=== PATIENT | male | born 1950 | race African-American/Black ===

== ENCOUNTER 2020-02-20 07:40 | Emergency (ER) | payer MEDICARE, MEDICAID ==
[~2020-02-20] VITALS: Ht 177.8 cm; Wt 99.8 kg
--- NOTE | 2020-02-20 08:11 | Emergency Room Report ---
History of Present Illness General Chief Complaint: Pain Source: Patient Present Illness HPI Disclaimer: Please note that this report is being documented using [employer] technology. This can lead to erroneous entry secondary to incorrect interpretation by the dictating instrument. HPI: 69-year-old male with a history of gout and osteoarthritis presents for evaluation of joint pain and swelling. 2 to 3 days ago he began to notice swelling over the dorsum of the hands and tenderness as well as swelling and tenderness in the left knee and in the left foot over the MTP joint of the first toe. Denies trauma, fall, injury of any kind. Patient has a history of gout and was previously taking allopurinol but was taken off by his prior PMD as it was not preventing attacks. He states his diet has been poor lately but denies any alcohol use. Denies fever, chills, rash, skin breakdown. Reports this feels like prior gout attacks. PMH: Gout, hypertension, COPD PSH: Reviewed Allergies: Denied Social Hx: Denied Allergies: Coded Allergies: No Known Allergies (Unverified , 02/20/20) COVID-19 Screening Contact w/high risk pt: No Recent Travel to affected area: No Experienced COVID-19 symptoms?: No COVID-19 Testing performed ATTORNEY AT [employer]: No Nursing Documentation-PMH Past Medical History: No History, Except For Hx Hypertension: Yes Review of Systems All Other Systems: negative except mentioned in HPI Physical Exam Vital Signs Date Time Temp Pulse Resp B/P (MAP) Pulse Ox O2 Delivery O2 Flow Rate FiO2 02/20/20 07:49 99.0 87 16 183/98 (126) 98 Room Air General: Awake and alert, no acute distress HEENT: NC/AT. EOMI. Resp: Normal work of breathing Skin: Intact. No abrasions, laceration or rash over the exposed skin MSK: Normal tone and bulk. Moving all extremities. No obvious deformity. Very mild edema over the dorsum of the hands bilaterally and some tenderness over the MCP J's of the index and middle fingers bilaterally. No restriction to range of motion. No changes in strength. There is tenderness palpation over the MTPJ of the left great toe with mild surrounding erythema. Minimal edema. Tenderness palpation around the left knee without edema, erythema. Patient ambulates with a walker. Neuro: Awake and alert. Mentating appropriately Medical Decision Making Diagnostic Impression: Primary Impression: Gout Additional Impressions: Joint pain Renal insufficiency ER Course 69-year-old male history of gout and osteoarthritis presents for evaluation of joint pain and swelling of the past 2 days. Differential includes is not limited to acute arthritis attack, gouty attack, pseudogout, an inflammatory arthritis, reactive arthritis, tendinitis. Patient originally arrived hypertensive but improved without intervention. He took his amlodipine this morning and does not take diuretics according to patient. Labs were obtained to evaluate renal function which shows signs of renal insufficiency. Uric acid level is at the upper end of normal range. Patient states he was told there was a decline in his kidney function on previous hospitalizations. No prior records in our facility to compare. He also states his diet and water intake have been poor recently. Encouraged him to follow-up with his primary care doctor in a few days for reevaluation and retesting and drink plenty of water over the next few days. Patient be given a dose of colchicine as his creatinine clearance still greater than 30 but will avoid NSAIDs given his renal insufficiency. Will discharge with prednisone, analgesics and follow-up with PMD. Laboratory Tests Test 02/20/20 08:14 Sodium Level 141 MMOL/L (136-145) Potassium Level 4.4 MMOL/L (3.5-5.1) Chloride Level 105 MMOL/L (98-107) Carbon Dioxide Level 30 MMOL/L (21-32) Anion Gap 7 mmol/L (5-15) Blood Urea Nitrogen 35 mg/dL (7-18) H Creatinine 2.4 MG/DL (0.55-1.30) H Estimated Glomerular Filtration Rate 32.6 mL/min (>60) Glucose Level 149 MG/DL (74-106) H Uric Acid 7.0 MG/DL (2.6-7.2) Calcium Level 9.0 MG/DL (8.5-10.1) Last Vital Signs Date Time Temp Pulse Resp B/P (MAP) Pulse Ox O2 Delivery O2 Flow Rate FiO2 02/20/20 07:49 99.0 87 16 183/98 (126) 98 Room Air Disposition: HOME, SELF-CARE Condition: Stable Scripts Acetaminophen With Codeine (T#3) (TYLENOL #3 TAB*) Y Tab 1 TAB ORAL Q8H PRN for For Pain for 5 Days, #20 TAB Prov: Michael Avendano MD 02/20/20 Colchicine (Colchicine) 0.6 Mg Capsule 0.6 MG PO ONCE for 1 Day, #1 CAP Prov: Michael Avendano MD 02/20/20 Prednisone* (PREDNISONE*) 20 Mg Tablet 40 MG ORAL DAILY for 5 Days, #10 TAB Prov: Michael Avendano MD 02/20/20 Michael Avendano MD Feb 20, 2020 08:11
[2020-02-20 08:18] VITALS: BP 160/80
[2020-02-20] MEDS: HYDROcodone/Acetamin 7.5/325 tab ORAL ONE ×2 (08:31→08:37)
[2020-02-20 09:07] LABS: ANION GAP 7 mmol/L (5-15); BLOOD UREA NITROGEN 35 mg/dL (7-18); CARBON DIOXIDE 30 MMOL/L (21-32); CHLORIDE 105 MMOL/L (98-107); CREATININE 2.4 MG/DL (0.55-1.30); POTASSIUM 4.4 MMOL/L (3.5-5.1); SODIUM 141 MMOL/L (136-145)
[2020-02-20] MEDS ORDERED: PREDNISONE20 MG ORAL ×2 (09:22)
[2020-02-20] MEDS ORDERED: ACETAMINOPHEN-1 EAC1 ORAL (09:22)
[2020-02-20] MEDS ORDERED: COLCHICINE0.6 M1 PO ×2 (09:22)
[2020-02-20 09:37] VITALS: BP 150/78
== END 2020-02-20 09:40 | disposition home or self-care (01) ==
LOC: EMR 08:11
DX: M10.9 Gout, unspecified (principal); N28.9 Disorder of kidney and ureter, unspecified; R52 Pain, unspecified; I10 Essential (primary) hypertension; J44.9 Chronic obstructive pulmonary disease, unspecified
CPT/HCPCS: 36415; 80048; 84550; 99283; J7512

== ENCOUNTER 2020-03-02 22:32 | Inpatient (IN) | payer MEDICARE, MEDICAID ==
[~2020-03-02] VITALS: Ht 180.3 cm; Wt 84.8 kg
[~2020-03-02 22:32] MED LIST: ACETAMINOPHEN-1 EAC1 ORAL; COLCHICINE0.6 M1 PO; PREDNISONE20 MG ORAL
[2020-03-02 22:45] VITALS: BP 174/118
--- NOTE | 2020-03-02 23:06 | Emergency Room Report ---
History of Present Illness General Chief Complaint: Pain Source: Patient Present Illness HPI Disclaimer: Please note that this report is being documented using [employer] technology. This can lead to erroneous entry secondary to incorrect interpretation by the dictating instrument. HPI: 69-year-old male with a history of hypertension, gout and osteoarthritis presents for evaluation of joint pain and swelling. He was treated for gout exacerbation 2 weeks ago with prednisone and states his symptoms completely resolved. Few days ago they returned complaining of pain and mild swelling over the base of the left thumb and in the left foot. Most of his pain is at the base of the fourth and fifth toes on the left foot with mild ankle swelling but denies pain in the ankle specifically. Ambulates with a walker which is his baseline. Denies fever, chills, redness, skin breakdown, injury, fall or other complaints at this time. 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 EOMI. Resp: Normal work of breathing Skin: Intact. No abrasions, laceration or rash over the exposed skin MSK: Normal tone and bulk. Moving all extremities. There is tenderness at the base of the right thumb with mild edema but full range of motion. No obvious deformity. The left ankle and foot have 2+ pitting edema with tenderness over the base of the fourth and fifth toes without deformity. Able to bear weight. No tenderness over the medial lateral malleolus. There is 1+ edema in the right ankle and foot without pain. Neuro: Awake and alert. Mentating appropriately Procedures Critical Care Time Critical Care Time Total critical care time: Approximately 31minutes Due to a high probability of clinically significant, life threatening deterioration, the patient required the highest level of preparedness to intervene emergently and I personally spent this critical care time directly and personally managing the patient. This critical care time included obtaining a history, examining the patient, pulse oximetry, ordering and reviewing studies , ordering treatments, evaluating response to treatment and updating management plan as needed, frequent reassessment and discussion with other providers as well as arranging for ultimate disposition. This critical to care time was performed to assess and manage the high probability of life-threatening deterioration that could result in multiorgan failure. This critical care time is separate from the separately billable procedures and treating other patients. Medical Decision Making Diagnostic Impression: Primary Impression: Joint pain Additional Impressions: Renal insufficiency NAVA (acute kidney injury) Hypertension, uncontrolled ER Course This a 69-year-old male with history of hypertension and gout presenting for evaluation of lower extremity pain and swelling as well as pain and swelling in the left thumb. Differential includes what sounded to osteoarthritis, gout, pseudogout, renal insufficiency, hypertensive urgency, hypertensive emergency, dehydration to name a few. The patient arrives hypertensive with systolic blood pressure in 200s. States he did not take his medications today but has them with him. Labs show worsening creatinine from previous visit. Patient states he is making adequate urine staying hydrated. He will require admission for acute kidney injury, lower extremity edema, possible gouty attack as uric acid levels are elevated. Patient received steroids but with holding NSAIDs and colchicine given the impaired renal function. Blood pressures initially elevated in the 220s. The patient took his home medications but also given hydralazine which improved his systolic pressures in the 180s. Will hold off on further rapid correction. He will be admitted to telemetry. Laboratory Tests Test 03/02/20 23:15 03/03/20 00:59 White Blood Count 13.1 K/UL (4.8-10.8) H Red Blood Count 4.08 M/UL (4.70-6.10) L Hemoglobin 11.9 G/DL (14.2-18.0) L Hematocrit 36.5 % (42.0-52.0) L Mean Corpuscular Volume 90 FL (80-99) Mean Corpuscular Hemoglobin 29.1 PG (27.0-31.0) Mean Corpuscular Hemoglobin Concent 32.5 G/DL (32.0-36.0) Red Cell Distribution Width 16.3 % (11.6-14.8) H Platelet Count 179 K/UL (150-450) Mean Platelet Volume 6.5 FL (6.5-10.1) Neutrophils (%) (Auto) 78.2 % (45.0-75.0) H Lymphocytes (%) (Auto) 8.4 % (20.0-45.0) L Monocytes (%) (Auto) 11.4 % (1.0-10.0) H Eosinophils (%) (Auto) 0.9 % (0.0-3.0) Basophils (%) (Auto) 1.0 % (0.0-2.0) Erythrocyte Sedimentation Rate 52 MM/HR (0-20) H Sodium Level 136 MMOL/L (136-145) Potassium Level 4.7 MMOL/L (3.5-5.1) Chloride Level 100 MMOL/L (98-107) Carbon Dioxide Level 26 MMOL/L (21-32) Anion Gap 10 mmol/L (5-15) Blood Urea Nitrogen 33 mg/dL (7-18) H Creatinine 3.0 MG/DL (0.55-1.30) H Estimated Glomerular Filtration Rate 25.2 mL/min (>60) Glucose Level 145 MG/DL (74-106) H Uric Acid 8.2 MG/DL (2.6-7.2) H Calcium Level 9.2 MG/DL (8.5-10.1) Troponin I 0.014 ng/mL (0.000-0.056) EKG Diagnostic Results EKG Time: 00:11 Rate: tachycardiac Rhythm: NSR ST Segments: no acute changes Other Impression Slight tachycardia, normal axis, criteria for LVH, no obvious ST segment changes., Lateral Q waves Rhythm Strip Diag. Results Rhythm Strip Time: 00:11 EP Interpretation: yes Rate: 106 Rhythm: NSR, no PVC's, no ectopy Last Vital Signs Date Time Temp Pulse Resp B/P (MAP) Pulse Ox O2 Delivery O2 Flow Rate FiO2 03/02/20 22:40 99.1 132 20 174/118 (136) 96 Room Air Michael Avendano MD Mar 02, 2020 23:05
[2020-03-02] MEDS ORDERED: Solu-MEDROL 125mg Inj IVP ONE (23:15)
[2020-03-02 23:45] LABS: ANION GAP 10 mmol/L (5-15); BLOOD UREA NITROGEN 33 mg/dL (7-18); CALCIUM 9.2 MG/DL (8.5-10.1); CARBON DIOXIDE 26 MMOL/L (21-32); CHLORIDE 100 MMOL/L (98-107); POTASSIUM 4.7 MMOL/L (3.5-5.1); SODIUM 136 MMOL/L (136-145)
[2020-03-03] VITALS (7 sets, daily range): BP systolic 154–192; BP diastolic 77–98
[2020-03-03 00:02] LABS: EOSINOPHILS % (AUTO) 0.9 % (0.0-3.0); HEMATOCRIT 36.5 % (42.0-52.0); HEMOGLOBIN 11.9 G/DL (14.2-18.0); LYMPHOCYTES % (AUTO) 8.4 % (20.0-45.0); MEAN CORPUSCULAR VOLUME 90 FL (80-99); MONOCYTES % (AUTO) 11.4 % (1.0-10.0); NEUTROPHILS % (AUTO) 78.2 % (45.0-75.0); PLATELET COUNT 179 K/UL (150-450); RED BLOOD COUNT 4.08 M/UL (4.70-6.10); RED CELL DISTRIBUTION WIDTH 16.3 % (11.6-14.8); WHITE BLOOD COUNT 13.1 K/UL (4.8-10.8)
[2020-03-03 03:58] LABS: APPEARANCE,URINE CLEAR; BILIRUBIN, URINE NEGATIVE (NEGATIVE); COLOR,URINE PALE YELLOW; GLUCOSE, URINE (UA) NEGATIVE (NEGATIVE); KETONES,URINE 1+ (NEGATIVE); LEUKOCYTE ESTERASE ,URINE NEGATIVE (NEGATIVE); NITRITE,URINE NEGATIVE (NEGATIVE); PH,URINE 6.5 (4.5-8.0); PROTEIN,URINE 4+ (NEGATIVE); UROBILINOGEN,URINE NORMAL MG/DL (0.0-1.0)
[2020-03-03] MEDS ORDERED: ALLOPURINOL100 M1 ORAL (04:07)
[2020-03-03] MEDS ORDERED: BISOPROLOL FUMAR5 MG PO (04:07)
[2020-03-03] MEDS ORDERED: HYDROCODON-ACE1 EA15 ORAL (04:07)
[2020-03-03] MEDS ORDERED: AMLODIPINE BESY10 MG ORAL (04:07)
[2020-03-03] MEDS ORDERED: LIPITOR80 MG ORAL (04:07)
[2020-03-03] MEDS: Tamsulosin 0.4mg cap ORAL SCH ×2 (12:59→18:51)
[2020-03-03] MEDS: Docusate 100mg cap ORAL SCH ×2 (13:00→18:51)
--- NOTE | 2020-03-03 13:06 | Consultation ---
Consult Note Consult Note I am asked to evaluate the patient at the request of Dr. Mikey Sanchez for renal failure Patient seen in room 220 bed 2 ER note: HPI: 69-year-old male with a history of hypertension, gout and osteoarthritis presents for evaluation of joint pain and swelling. He was treated for gout exacerbation 2 weeks ago with prednisone and states his symptoms completely resolved. Few days ago they returned complaining of pain and mild swelling over the base of the left thumb and in the left foot. Most of his pain is at the base of the fourth and fifth toes on the left foot with mild ankle swelling but denies pain in the ankle specifically. Ambulates with a walker which is his baseline. Denies fever, chills, redness, skin breakdown, injury, fall or other complaints at this time. 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
[2020-03-03] MEDS ORDERED: HYDROcodone/Acetamin 5/325 tab ORAL PRN (13:15)
--- NOTE | 2020-03-03 13:55 | Diagnostic Imaging Report ---
EXAM: US Retroperitoneal Limited, Renal CLINICAL HISTORY: RENAL-A TECHNIQUE: Real-time limited ultrasound of the retroperitoneum with image documentation. COMPARISON: No relevant prior studies available. FINDINGS: Right kidney: Right kidney measures 10.8 x 5.2 x 4.4 cm. Mildly echogenic parenchyma. Normal cortical thickness. No focal parenchymal lesions. No visible stones. No hydronephrosis. Left kidney: Left kidney measures 10.9 x 6.1 x 5.3 cm. Mildly echogenic parenchyma. Normal cortical thickness. No focal parenchymal lesions. No visible stones. No hydronephrosis. Bladder: Urinary bladder is underdistended and otherwise appears unremarkable. Aorta and IVC are obscured by bowel gas and cannot be evaluated. IMPRESSION: Bilateral mildly echogenic kidneys, suggesting renal parenchymal disease. No hydronephrosis.
--- NOTE | 2020-03-03 14:30 | History and Physical Report ---
DATE OF ADMISSION: 03/03/2020 TIME SEEN: 9 a.m. CONSULTANTS: 1. Rickie Billy MD 2. Michelle Nunez MD 3. Jase Oneill MD CHIEF COMPLAINT: Hypertensive urgency, gout, NAVA, and left hand pain. BRIEF HISTORY: This is a 69-year-old male, who lives at home, presents with increased left hand pain possibly due to his gout, came to [facility], diagnosed with hypertensive urgency and above, and admitted to [facility] for treatment. Currently, calm in bed, slight hand pain. No complaint. REVIEW OF SYSTEMS: No chest pain. No shortness of breath. No nausea, vomiting, or diarrhea. PAST MEDICAL HISTORY: Hypertension, gout, and NAVA. PAST SURGICAL HISTORY: None. ALLERGIES: Denies. MEDICATIONS: Include atorvastatin, amlodipine, Risperdal, Zofran, Tylenol, potassium, hydralazine, and methylprednisolone. SOCIAL HISTORY: No smoking. No alcohol. No intravenous drug abuse. FAMILY HISTORY: Noncontributory. PHYSICAL EXAMINATION: GENERAL: Calm in bed, oriented x3, in no acute distress. VITAL SIGNS: Temperature is 98 degrees, pulse 89, respirations 20, and blood pressure 159/90. CARDIOVASCULAR: No murmur. LUNGS: Distant and clear. ABDOMEN: Positive bowel sounds. Soft, nontender, nondistended. EXTREMITIES: Show no cyanosis or edema. NEUROLOGIC: The patient moves all extremities, slightly weak. LABORATORY AND DIAGNOSTIC DATA: Labs at this time show white count 13, H and H 11/36, and platelets 179,000. Troponin 0.014. BUN and creatinine 33/3.0. Urinalysis, 1+ ketones. ASSESSMENT: 1. Left hand pain. 2. Hypertensive urgency. 3. Gout. 4. NAVA. PLAN: 1. Continue premeds. 2. Antibiotics per Infectious Disease. 3. PT and dietary evaluation. 4. ID evaluation with Dr. Lloyd as well. Mikey Sanchez D.O. DR: RHONDA JOB#: [id number] CC:
--- NOTE | 2020-03-03 14:36 | Cardiac Electrophysiology PN ---
Subjective Subjective [id number] Objective Last 24 Hour Vital Signs Date Time Temp Pulse Resp B/P (MAP) Pulse Ox O2 Delivery O2 Flow Rate FiO2 03/03/20 13:54 155/94 03/03/20 12:02 Room Air 03/03/20 09:00 89 159/90 03/03/20 08:14 98.6 89 20 159/90 99 03/03/20 07:45 Room Air 03/03/20 07:30 98.4 79 15 162/89 100 Room Air 03/03/20 05:00 98.0 82 16 171/98 98 Room Air 03/03/20 02:00 98.9 78 18 192/98 96 Room Air 03/03/20 00:06 228/102 03/02/20 22:45 99.1 88 20 174/118 96 Room Air 03/02/20 22:40 99.1 132 20 174/118 (136) 96 Room Air Laboratory Tests Test 03/02/20 23:15 03/03/20 00:59 03/03/20 03:45 White Blood Count 13.1 K/UL (4.8-10.8) H Red Blood Count 4.08 M/UL (4.70-6.10) L Hemoglobin 11.9 G/DL (14.2-18.0) L Hematocrit 36.5 % (42.0-52.0) L Mean Corpuscular Volume 90 FL (80-99) Mean Corpuscular Hemoglobin 29.1 PG (27.0-31.0) Mean Corpuscular Hemoglobin Concent 32.5 G/DL (32.0-36.0) Red Cell Distribution Width 16.3 % (11.6-14.8) H Platelet Count 179 K/UL (150-450) Mean Platelet Volume 6.5 FL (6.5-10.1) Neutrophils (%) (Auto) 78.2 % (45.0-75.0) H Lymphocytes (%) (Auto) 8.4 % (20.0-45.0) L Monocytes (%) (Auto) 11.4 % (1.0-10.0) H Eosinophils (%) (Auto) 0.9 % (0.0-3.0) Basophils (%) (Auto) 1.0 % (0.0-2.0) Erythrocyte Sedimentation Rate 52 MM/HR (0-20) H Sodium Level 136 MMOL/L (136-145) Potassium Level 4.7 MMOL/L (3.5-5.1) Chloride Level 100 MMOL/L (98-107) Carbon Dioxide Level 26 MMOL/L (21-32) Anion Gap 10 mmol/L (5-15) Blood Urea Nitrogen 33 mg/dL (7-18) H Creatinine 3.0 MG/DL (0.55-1.30) H Estimat Glomerular Filtration Rate 25.2 mL/min (>60) Glucose Level 145 MG/DL (74-106) H Uric Acid 8.2 MG/DL (2.6-7.2) H Calcium Level 9.2 MG/DL (8.5-10.1) Troponin I 0.014 ng/mL (0.000-0.056) Urine Color Pale yellow Urine Appearance Clear Urine pH 6.5 (4.5-8.0) Urine Specific [place] 1.010 (1.005-1.035) Urine Protein 4+ (NEGATIVE) H Urine Glucose (UA) Negative (NEGATIVE) Urine Ketones 1+ (NEGATIVE) H Urine Blood Negative (NEGATIVE) Urine Nitrite Negative (NEGATIVE) Urine Bilirubin Negative (NEGATIVE) Urine Urobilinogen Normal MG/DL (0.0-1.0) Urine Leukocyte Esterase Negative (NEGATIVE) Urine RBC 0-2 /HPF (0 - 0) H Urine WBC 0-2 /HPF (0 - 0) Urine Squamous Epithelial Cells Occasional /LPF Urine Bacteria Occasional /HPF (NONE) Rickie Billy MD Mar 03, 2020 14:36
[2020-03-03] MEDS: Solu-MEDROL 40mg Inj IVP SCH (18:51)
--- NOTE | 2020-03-03 20:00 | History and Physical Report ---
DATE OF ADMISSION: 03/03/2020 HISTORY OF PRESENT ILLNESS: This is a 69-year-old male with history of hypertension, COPD, gout, and osteoarthritis, who came to the hospital with left foot swelling and pain as well as left arm pain. The patient reports that he has gout and has been taking prednisone with improvement. As he tapers the prednisone off, his symptoms have recurred. He now presents for evaluation. He is admitted to the hospital. On admission, he was found to have worsening kidney function. PAST MEDICAL HISTORY: Gout, hypertension, COPD, osteoarthrosis. PAST SURGICAL HISTORY: None reported. ALLERGIES: None. SOCIAL HISTORY: No history of alcohol or tobacco usage. MEDICATIONS: His list of home medications include allopurinol, amlodipine, clonidine, Colace. He is currently also on Flomax. He also received steroids in the emergency room. REVIEW OF SYSTEMS: The patient denies any headaches, hematemesis, melena, hematochezia, night sweats, or weight loss. PHYSICAL EXAMINATION: GENERAL: Reveals a obese 69-year-old male. HEENT: Unremarkable. LUNGS: Clear breath sounds bilaterally. ABDOMEN: Soft, there is no edema at this time. EXTREMITIES: On my assessment, I do not see any redness or erythema over the left great toe. VITAL SIGNS: Blood pressure 150/90, heart rate 84, respirations 18, O2 sat 98% on room air. LABORATORY DATA: Lab testing shows white count 28050, hemoglobin 11.9, creatinine is 3, uric acid 8.2. IMPRESSION: 1. Acute gouty arthritis and flare. 2. Hypertension. 3. COPD. 4. Renal dysfunction. DISCUSSION: Admit to the hospital, intravenous fluids. We will give steroids. Avoid colchicine. Given renal dysfunction. Avoid allopurinol. We will follow carefully. Gurmeet Solis M.D. DR: WOODROW JOB#: [id number] CC:
[2020-03-03] MEDS ORDERED: Atorvastatin 80mg tab ORAL SCH (21:00)
--- NOTE | 2020-03-03 21:44 | Consultation ---
DATE OF CONSULTATION: 03/03/2020 CARDIOLOGY CONSULTATION CONSULTING PHYSICIAN: Rickie Billy M.D. REFERRING PHYSICIAN: Mikey Sanchez D.O. REASON FOR CONSULTATION: Hypertensive urgency. HISTORY OF PRESENT ILLNESS: The patient is a 69-year-old gentleman with history of hypertension, borderline diabetes, as well as gout, who lives at home, presented to the hospital for left hand pain due to his gout. The patient was noted to have hypertensive urgency and was admitted for further evaluation. The patient denies any prior myocardial infarction or coronary artery disease or congestive heart failure. REVIEW OF SYSTEMS: Review of systems was negative other than what was mentioned in the history of present illness. PAST MEDICAL HISTORY: As mentioned above. FAMILY HISTORY: Noncontributory. SOCIAL HISTORY: He lives at home. He does not smoke or drink alcohol. PHYSICAL EXAMINATION: VITAL SIGNS: Blood pressure is 160/80, pulse is 90, and respirations 18. He is afebrile. HEAD AND NECK: Showed no JVD. LUNGS: Clear. CARDIOVASCULAR: Regular, S1 and S2 with no gallop or murmur. ABDOMEN: Soft. EXTREMITIES: No pitting edema. LABORATORY DATA: White count of 13, hemoglobin of 12, hematocrit of 36, and platelet count is 179,000. Sodium is 136, potassium 4.7, BUN of 32, creatinine of 3, and glucose of 145. Troponin is negative. EKG shows sinus rhythm with LVH. ASSESSMENT AND PLAN: 1. Hypertensive urgency. He is on Norvasc 10 mg daily and clonidine 0.1 mg every 8 hours. Avoid DAYAN inhibitor and angiotensin receptor blockers in view of the patient's renal failure. 2. Diastolic dysfunction. We will get an echocardiogram for further evaluation. 3. Gout, on allopurinol. 4. Renal failure could be due to gout. Further evaluation by Dr. Oneill. Thank you very much for allowing me to participate in the care of this patient. Please do not hesitate to contact me for any questions regarding my evaluation. Rickie Billy M.D. DR: RASHID JOB#: [id number] CC:
[2020-03-04] VITALS: BP 148/73
[2020-03-04] MEDS: Solu-MEDROL 40mg Inj IVP SCH ×2 (00:13→05:21)
[2020-03-04 04:00] VITALS: BP 152/85
[2020-03-04 07:18] LABS: HEMATOCRIT 29.2 % (42.0-52.0); HEMOGLOBIN 9.8 G/DL (14.2-18.0); MEAN CORPUSCULAR VOLUME 88 FL (80-99); PLATELET COUNT 173 K/UL (150-450); RED BLOOD COUNT 3.31 M/UL (4.70-6.10); RED CELL DISTRIBUTION WIDTH 14.2 % (11.6-14.8); WHITE BLOOD COUNT 18.4 K/UL (4.8-10.8)
[2020-03-04 07:59] LABS: ALANINE AMINOTRANSFERASE 25 U/L (12-78); ALBUMIN 2.5 G/DL (3.4-5.0); ALBUMIN/GLOBULIN RATIO 0.7 (1.0-2.7); ALKALINE PHOSPHATASE 52 U/L (46-116); ANION GAP 13 mmol/L (5-15); ASPARTATE AMINO TRANSFERASE 13 U/L (15-37); BILIRUBIN,TOTAL 0.4 MG/DL (0.2-1.0); BLOOD UREA NITROGEN 49 mg/dL (7-18); CALCIUM 8.7 MG/DL (8.5-10.1); CARBON DIOXIDE 21 MMOL/L (21-32); CHLORIDE 104 MMOL/L (98-107); CHOLESTEROL 193 MG/DL (< 200); CREATINE KINASE 75 U/L (26-308); CREATININE 2.9 MG/DL (0.55-1.30); FERRITIN 778 NG/ML (8-388); GAMMA GLUTAMYL TRANSPEPTIDASE 44 U/L (5-85); HDL CHOLESTEROL 70 MG/DL (40-60); PHOSPHORUS 5.1 MG/DL (2.5-4.9); POTASSIUM 4.7 MMOL/L (3.5-5.1); SODIUM 137 MMOL/L (136-145); TRIGLYCERIDES 43 MG/DL (30-150)
[2020-03-04 08:19] LABS: % IRON SATURATION 20 % (15-50); IRON 37 ug/dL (50-175); TOTAL IRON BINDING CAPACITY 186 ug/dL (250-450)
[2020-03-04 08:41] VITALS: BP 142/84
[2020-03-04] MEDS: Docusate 100mg cap ORAL SCH (09:07)
[2020-03-04 09:08] VITALS: BP 142/84
[2020-03-04] MEDS: Tamsulosin 0.4mg cap ORAL SCH (09:08)
--- NOTE | 2020-03-04 10:49 | Nephrology Progress Note ---
Assessment/Plan Problem List: (1) NAVA (acute kidney injury) (2) Renal failure (ARF), acute on chronic (3) Hypertension, uncontrolled (4) Gout Assessment: and gouty arthritis Assessment Renal failure most likely hypertensive nephrosclerosis, has 4+ proteinuria Acute renal failure most likely superimposed on chronic kidney disease History of gout and gouty arthritis Uncontrolled hypertension Anemia COPD Plan Blood pressure medication with proper parameters On steroids, taper as possible. Avoid nephrotoxic's Monitor renal parameters Slow hydration Per orders Kidney ultrasound: Bilateral mildly echogenic kidneys, suggesting renal parenchymal disease. No hydronephrosis. Subjective ROS Limited/Unobtainable: No Constitutional: Reports: malaise Objective Objective Last 24 Hour Vital Signs Date Time Temp Pulse Resp B/P (MAP) Pulse Ox O2 Delivery O2 Flow Rate FiO2 03/04/20 09:08 101 142/84 03/04/20 09:00 Room Air 03/04/20 08:41 97.7 101 18 142/84 (103) 100 03/04/20 08:40 101 03/04/20 05:22 152/85 03/04/20 04:00 78 03/04/20 04:00 98.1 102 19 152/85 (107) 97 03/04/20 00:00 98.6 98 19 148/73 (98) 98 03/04/20 00:00 81 03/03/20 21:52 154/77 03/03/20 21:00 Room Air 03/03/20 20:00 87 03/03/20 20:00 98.1 102 18 154/77 (102) 99 03/03/20 16:00 99.5 92 16 161/93 (115) 98 03/03/20 16:00 87 03/03/20 13:54 155/94 03/03/20 12:02 Room Air 03/03/20 12:00 99.3 94 16 155/84 (107) 99 03/03/20 12:00 82 Intake and Output 03/03/20 03/04/20 19:00 07:00 Intake Total 990 ml Balance 990 ml Intake Oral 990 ml # Voids 3 2 # Bowel Movements 1 Current Medications Medications (Trade) Dose Ordered Sig/Arvind Route PRN Reason Start Time Stop Time Status Last Admin Dose Admin Acetaminophen/ Hydrocodone Bitart ([place] 5/325) 1 tab Q6H PRN ORAL For Pain 03/03/20 13:15 03/10/20 13:14 Amlodipine Besylate (Norvasc) 10 mg DAILY ORAL 03/04/20 09:00 04/02/20 08:59 03/04/20 09:08 Clonidine HCl (Catapres Tab) 0.1 mg EVERY 8 HOURS ORAL 03/03/20 14:00 06/01/20 13:59 03/04/20 05:22 Docusate Sodium (Colace) 100 mg THREE TIMES A DAY ORAL 03/03/20 13:00 04/02/20 12:59 03/04/20 09:07 Methylprednisolone Sodium Succinate (Solu-MEDROL) 40 mg EVERY 6 HOURS IVP 03/03/20 18:00 06/01/20 17:59 03/04/20 05:21 Pantoprazole (Protonix) 40 mg EVERY 12 HOURS ORAL 03/03/20 21:00 04/02/20 20:59 03/04/20 09:08 Sodium Chloride 1,000 ml @ 75 mls/hr [id number] IV 03/03/20 12:59 04/02/20 12:58 03/03/20 21:53 Tamsulosin HCl (Flomax) 0.4 mg BID ORAL 03/03/20 12:59 04/02/20 12:58 03/04/20 09:08 Laboratory Tests 03/03/20 16:09: D-Dimer 3.50H 03/04/20 06:39: White Blood Count 18.4H, Red Blood Count 3.31L, Hemoglobin 9.8L, Hematocrit 29.2L, Mean Corpuscular Volume 88, Mean Corpuscular Hemoglobin 29.6, Mean Corpuscular Hemoglobin Concent 33.4, Red Cell Distribution Width 14.2, Platelet Count 173, Mean Platelet Volume 6.7, Neutrophils (%) (Auto) , Lymphocytes (%) ( Auto) , Monocytes (%) (Auto) , Eosinophils (%) (Auto) , Basophils (%) (Auto) , Differential Total Cells Counted 100, Neutrophils % (Manual) 95H, Lymphocytes % (Manual) 3L, Monocytes % (Manual) 2, Eosinophils % (Manual) 0, Basophils % ( Manual) 0, Band Neutrophils 0, Platelet Estimate Adequate, Platelet Morphology Normal, Hypochromasia 1+, Anisocytosis 1+, Sodium Level 137, Potassium Level 4.7 , Chloride Level 104, Carbon Dioxide Level 21, Anion Gap 13, Blood Urea Nitrogen 49H, Creatinine 2.9H, Estimat Glomerular Filtration Rate 26.2, Glucose Level 281#H, Uric Acid 7.7H, Calcium Level 8.7, Phosphorus Level 5.1H, Magnesium Level 2.0, Iron Level 37L, Total Iron Binding Capacity 186L, Percent Iron Saturation 20, Unsaturated Iron Binding 149, Ferritin 778H, Total Bilirubin 0.4, Gamma Glutamyl Transpeptidase 44, Aspartate Amino Transf (AST/ SGOT) 13L, Alanine Aminotransferase (ALT/SGPT) 25, Alkaline Phosphatase 52, Total Creatine Kinase 75, Troponin I 0.000, C-Reactive Protein, Quantitative 19.3H, Pro-B-Type Natriuretic Peptide 813H, Total Protein 6.0L, Albumin 2.5L, Globulin 3.5, Albumin/Globulin Ratio 0.7L, Triglycerides Level 43, Cholesterol Level 193, LDL Cholesterol 108H, HDL Cholesterol 70H, Cholesterol/HDL Ratio 2.8L , Vitamin B12 Level 412, Folate 13.9, Thyroid Stimulating Hormone (TSH) 0.709, Free Thyroxine 0.83 Height (Feet): 5 Height (Inches): 11.00 Weight (Pounds): 187 General Appearance: mild distress Cardiovascular: tachycardia Respiratory/Chest: decreased breath sounds Abdomen: soft Jase Oneill MD Mar 04, 2020 10:49
--- NOTE | 2020-03-04 12:12 | Pulmonology Progress Note ---
Subjective ROS Limited/Unobtainable: No Interval Events: Cr down to 2.9; WBC incraesed Constitutional: Reports: no symptoms HEENT: Repors: no symptoms Respiratory: Reports: no symptoms Cardiovascular: Reports: no symptoms Gastrointestinal/Abdominal: Reports: no symptoms Genitourinary: Reports: no symptoms Neurologic: Reports: no symptoms Allergies: Coded Allergies: No Known Allergies (Unverified , 02/20/20) Objective Last 24 Hour Vital Signs Date Time Temp Pulse Resp B/P (MAP) Pulse Ox O2 Delivery O2 Flow Rate FiO2 03/04/20 09:08 101 142/84 03/04/20 09:00 Room Air 03/04/20 08:41 97.7 101 18 142/84 (103) 100 03/04/20 08:40 101 03/04/20 05:22 152/85 03/04/20 04:00 78 03/04/20 04:00 98.1 102 19 152/85 (107) 97 03/04/20 00:00 98.6 98 19 148/73 (98) 98 03/04/20 00:00 81 03/03/20 21:52 154/77 03/03/20 21:00 Room Air 03/03/20 20:00 87 03/03/20 20:00 98.1 102 18 154/77 (102) 99 03/03/20 16:00 99.5 92 16 161/93 (115) 98 03/03/20 16:00 87 03/03/20 13:54 155/94 Intake and Output 03/03/20 03/04/20 19:00 07:00 Intake Total 990 ml Balance 990 ml Intake Oral 990 ml # Voids 3 2 # Bowel Movements 1 General Appearance: no acute distress HEENT: normocephalic Respiratory: chest wall non-tender, lungs clear Cardiovascular: normal peripheral pulses, normal rate Abdomen: normal bowel sounds Laboratory Tests 03/03/20 16:09: D-Dimer 3.50H 03/04/20 06:39: White Blood Count 18.4H, Red Blood Count 3.31L, Hemoglobin 9.8L, Hematocrit 29.2L, Mean Corpuscular Volume 88, Mean Corpuscular Hemoglobin 29.6, Mean Corpuscular Hemoglobin Concent 33.4, Red Cell Distribution Width 14.2, Platelet Count 173, Mean Platelet Volume 6.7, Neutrophils (%) (Auto) , Lymphocytes (%) ( Auto) , Monocytes (%) (Auto) , Eosinophils (%) (Auto) , Basophils (%) (Auto) , Differential Total Cells Counted 100, Neutrophils % (Manual) 95H, Lymphocytes % (Manual) 3L, Monocytes % (Manual) 2, Eosinophils % (Manual) 0, Basophils % ( Manual) 0, Band Neutrophils 0, Platelet Estimate Adequate, Platelet Morphology Normal, Hypochromasia 1+, Anisocytosis 1+, Sodium Level 137, Potassium Level 4.7 , Chloride Level 104, Carbon Dioxide Level 21, Anion Gap 13, Blood Urea Nitrogen 49H, Creatinine 2.9H, Estimat Glomerular Filtration Rate 26.2, Glucose Level 281#H, Uric Acid 7.7H, Calcium Level 8.7, Phosphorus Level 5.1H, Magnesium Level 2.0, Iron Level 37L, Total Iron Binding Capacity 186L, Percent Iron Saturation 20, Unsaturated Iron Binding 149, Ferritin 778H, Total Bilirubin 0.4, Gamma Glutamyl Transpeptidase 44, Aspartate Amino Transf (AST/ SGOT) 13L, Alanine Aminotransferase (ALT/SGPT) 25, Alkaline Phosphatase 52, Total Creatine Kinase 75, Troponin I 0.000, C-Reactive Protein, Quantitative 19.3H, Pro-B-Type Natriuretic Peptide 813H, Total Protein 6.0L, Albumin 2.5L, Globulin 3.5, Albumin/Globulin Ratio 0.7L, Triglycerides Level 43, Cholesterol Level 193, LDL Cholesterol 108H, HDL Cholesterol 70H, Cholesterol/HDL Ratio 2.8L , Vitamin B12 Level 412, Folate 13.9, Thyroid Stimulating Hormone (TSH) 0.709, Free Thyroxine 0.83 Current Medications Medications (Trade) Dose Ordered Sig/Arvind Route PRN Reason Start Time Stop Time Status Last Admin Dose Admin Acetaminophen/ Hydrocodone Bitart ([place] 5/325) 1 tab Q6H PRN ORAL For Pain 03/03/20 13:15 03/10/20 13:14 Amlodipine Besylate (Norvasc) 10 mg DAILY ORAL 03/04/20 09:00 04/02/20 08:59 03/04/20 09:08 Clonidine HCl (Catapres Tab) 0.1 mg EVERY 8 HOURS ORAL 03/03/20 14:00 06/01/20 13:59 03/04/20 05:22 Docusate Sodium (Colace) 100 mg THREE TIMES A DAY ORAL 03/03/20 13:00 04/02/20 12:59 03/04/20 09:07 Methylprednisolone Sodium Succinate (Solu-MEDROL) 40 mg EVERY 6 HOURS IVP 03/03/20 18:00 06/01/20 17:59 03/04/20 05:21 Pantoprazole (Protonix) 40 mg EVERY 12 HOURS ORAL 03/03/20 21:00 04/02/20 20:59 03/04/20 09:08 Sodium Chloride 1,000 ml @ 75 mls/hr [id number] IV 03/03/20 12:59 04/02/20 12:58 03/03/20 21:53 Tamsulosin HCl (Flomax) 0.4 mg BID ORAL 03/03/20 12:59 04/02/20 12:58 03/04/20 09:08 Assessment/Plan Assessment/Plan IMPRESSION: 1. Acute gouty arthritis and flare. 2. Hypertension. 3. COPD. 4. Renal dysfunction. DISCUSSION: Continue intravenous fluids. Continue steroids. Avoid colchicine given renal dysfunction. DC allopurinol. I will follow carefully. Prabha Colon Omar Syed MD Mar 04, 2020 12:12
[2020-03-04] MEDS ORDERED: LIPITOR80 MG ORAL (12:28)
[2020-03-04] MEDS ORDERED: HYDROCODON-ACE1 EA15 ORAL (12:28)
[2020-03-04] MEDS ORDERED: PREDNISONE20 MG ORAL (12:28)
[2020-03-04] MEDS ORDERED: BISOPROLOL FUMAR5 MG PO (12:28)
[2020-03-04] MEDS ORDERED: COLCHICINE0.6 M1 PO (12:28)
[2020-03-04] MEDS ORDERED: AMLODIPINE BESY10 MG ORAL (12:28)
--- NOTE | 2020-03-04 23:23 | CDS Physician Query ---
Clarification is required for compliance, coding accuracy, and to reflect severity of illness for this patient Dear Dr. Thomas, Date: 03.04.20 CDS: Talat Parson Per consult note, acute on chronic renal failure is present, patient has a GFR of 26.2 as of 03.04.20 Please Clarify: Stages Description GFR [] CKD Stage 1 Caused by DM, HTN, etc. with kidney abnormality 90 mL/ min or more [] CKD Stage 2 Mild decrease in Kidney function 60 to 89 mL/min [] CKD Stage 3 Moderate decrease in kidney function 30- 59 [] CKD Stage 4 Severe decrease in kidney function 15-29 [] CKD Stage 5 Kidney failure; requiring dialysis or transplantation < 15 [] ESRD Patient requiring dialysis for > 3 months or kidney transplant irrespective of level of GFR; Applicable for 1 year after kidney transplant [] Other: [] Comment/Explanation: Present on Admission: [] Yes [] No [] Clinically Undetermined Physician signature Date Please also document in your Progress Notes and/or Discharge Summary and indicate if the condition was present on admission. BHAVANAD
--- NOTE | 2020-03-05 08:39 | Discharge Summary ---
Discharge Summary Discharge Summary _ DATE OF ADMISSION: 03/03/2020 DATE OF DISCHARGE: 03/04/2020 DISCHARGED BY: REASON FOR ADMISSION: 69 years old male with past medical history of hypertension, COPD, gout, osteoarthritis, presented for evaluation due to complaint of joint pain and joint swelling. Patient was treated for gout exacerbation 2 weeks ago with prednisone and stated that his symptoms completely resolved. Few days ago his symptoms returned. Patient complained of pain and swelling over the base of his left thumb and the left foot. Most of the pain was located at the base of the fourth and fifth toes on the left foot with mild ankle swelling. He denied pain in ankle specifically. Patient was able to ambulate with a walker , which was his baseline. He denied fever and chills. He denied skin breakdown or redness. No recent injury , falls or trauma. Upon evaluation patient was tachycardic with heart rate 132, blood pressure was elevated 174/118, patient was afebrile. Laboratory work-up revealed leukocytosis WBC 13.1, hemoglobin 11.9, hematocrit 36.5 , platelet count 179. Stable electrolytes. BUN 33, creatinine 3.0. Troponin 0.014. KG revealed sinus tachycardia no acute ischemic changes Glucose 145. Patient subsequently admitted for joint pain, acute kidney injury and uncontrolled hypertension. CONSULTANTS: maintenance worker municipal Dr. Griffith winder operator Dr. Oneill HOSPITAL COURSE: Patient admitted to telemetry floor and started on the IV fluids. Patient started on steroids. GI prophylaxis provided. Colchicine was avoided given renal function. Water Regulator And Valve Repairer consulted for blood pressure control. Blood pressure was managed with calcium channel sandee and clonidine . DAYAN inhibitor and ARB were avoided given renal failure. Echocardiogram demonstrated preserved ejection fraction 55 to 60% with mild left ventricular hypertrophy. No evidence of wall motion abnormality to the extent visualized. Right ventricular systolic pressure of 16. Renal ultrasound demonstrated bilateral mildly echogenic kidneys, suggesting renal parenchymal disease. No hydronephrosis. Patient was on IV hydration . Urinalysis revealed +4 proteinuria. Renal failure was most likely due to hypertensive nephrosclerosis. Acute renal failure was most likely superimposed on chronic kidney disease. Pain management was addressed as needed. Supplemental oxygen was on board as needed to keep pulse oximetry above 90%. Pulse oximetry remained stable on room air. No evidence of respiratory distress or COPD exacerbation. Supportive care provided. Patient clinically stabilized and was ready for discharge home. Patient received prescription for oral prednisone for additional 5 days. Patient to follow-up with a primary care provider in 1 week. Due to rapid and unexpected improvement in patient condition ,patient was discharged in 1 day. FINAL DIAGNOSES: Acute gouty arthritis with flare Hypertension with hypertensive urgency Hypertensive nephrosclerosis Acute renal failure , most likely superimposed on chronic kidney disease COPD DISCHARGE MEDICATIONS: See Medication Reconciliation list. DISCHARGE INSTRUCTIONS: Patient was discharged home. Follow-up with a primary care provider in 1 week. Closely monitor renal function and avoid nephrotoxics. I have been assigned to dictate discharge summary for this account. I was not involved in the patient's management. Janice Bacon NP Mar 05, 2020 08:39
== END 2020-03-04 13:58 | disposition home or self-care (01) | DRG 305 ==
LOC: EMR 23:16 → 2E 03-03 03:04 → EDBEDREQ 03-03 03:52 → 2E 03-03 06:45
DX: I16.0 Hypertensive urgency (principal); N17.9 Acute kidney failure, unspecified; N18.4 Chronic kidney disease, stage 4 (severe); I12.9 Hypertensive chronic kidney disease with stage 1 through stage 4 chronic kidney disease, or unspecified chronic kidney disease; M10.9 Gout, unspecified; J44.9 Chronic obstructive pulmonary disease, unspecified; M1A.9XX0 Chronic gout, unspecified, without tophus (tophi); D64.9 Anemia, unspecified; M19.90 Unspecified osteoarthritis, unspecified site
CPT/HCPCS: 36415; 76770; 80048; 80053; 80061; 81003; 82550; 82607; 82728; 82746; 82977; 83540; 83550; 83735; 83880; 84100; 84439; 84443; 84484; 84550; 85007; 85025; 85379; 85651; 86140; 93005; 93306; 96374; 96375; 99291; J7030

== ENCOUNTER 2020-03-10 06:29 | Emergency (ER) | payer MEDICARE, MEDICAID ==
[~2020-03-10] VITALS: Ht 170.2 cm; Wt 72.6 kg
[~2020-03-10 06:29] MED LIST changes: +ALLOPURINOL100 M1 ORAL; +AMLODIPINE BESY10 MG ORAL; +BISOPROLOL FUMAR5 MG PO; +HYDROCODON-ACE1 EA15 ORAL; +LIPITOR80 MG ORAL
--- NOTE | 2020-03-10 06:59 | NUR ---
ED Nurse Note: Recieved pt from home, here with c/o toothache and needs medical clearance for dental procedure on Thursday, pt also c/o "i dont want my gout to flare back up", pt states was on prednisone course and wants more, denies CP, SOB, or any other complaints, pt left ankle with mild swelling, pt assisted to yan and urine collected, will resume care as ordered [place] ORR at bedside currently.
[2020-03-10 07:05] VITALS: BP 170/91
--- NOTE | 2020-03-10 07:10 | NUR ---
ER DISCHARGE NOTE: Patient is cleared to be discharged per ERMD, pt is aox4, on room air, with stable vital signs. pt was given dc instructions with reference to where he can get med clearance at primary MD, pt was able to verbalize understanding, pt id band removed . pt is able to ambulate with steady gait. pt took all belongings.
[2020-03-10 07:12] VITALS: BP 170/91
--- NOTE | 2020-03-10 07:14 | Emergency Room Report ---
History of Present Illness General Chief Complaint: General Complaint Source: Patient Present Illness HPI Disclaimer: Please note that this report is being documented using [employer] technology. This can lead to erroneous entry secondary to incorrect interpretation by the dictating instrument. HPI: 69-year-old male with history of gout presents requesting medical clearance prior to a dental procedure. Patient states he is scheduled for oral surgery tomorrow and needs medical clearance prior to this procedure. He was recently discharged after a gout flare and is requesting additional prednisone. His last dose of prednisone was yesterday. He states his feet are still swollen but denies any redness, tenderness, change in ambulation, restriction to range of motion, fever, chills or other changes in his health. He is not yet followed up with his PMD after his hospitalization. No other complaints at this time. PMH: Gout, hypertension, CKD PSH: Knee replacement Allergies: None reported Social Hx: None reported Allergies: Coded Allergies: No Known Allergies (Unverified , 02/20/20) COVID-19 Screening Contact w/high risk pt: No Recent Travel to affected area: No Experienced COVID-19 symptoms?: No COVID-19 Testing performed LIVESTOCK AGENT: No Nursing Documentation-PMH Hx Hypertension: Yes Hx COPD: Yes Hx Cancer: No Hx Gastrointestinal Problems: No Hx Neurological Problems: No Review of Systems All Other Systems: negative except mentioned in HPI Physical Exam Vital Signs Date Time Temp Pulse Resp B/P (MAP) Pulse Ox O2 Delivery O2 Flow Rate FiO2 03/10/20 06:42 97.5 77 16 185/100 (128) 98 Room Air General: Awake and alert, no acute distress HEENT: NC/AT. EOMI. Resp: Normal work of breathing Skin: Intact. No abrasions, laceration or rash over the exposed skin MSK: Normal tone and bulk. Moving all extremities. No obvious deformity. No significant edema lower extremities. No tenderness over the medial or lateral malleolus of the left ankle, no skin breakdown, full range of motion on dorsiflexion and plantarflexion. Ambulating with the use of his cane Neuro: Awake and alert. Mentating appropriately Medical Decision Making Diagnostic Impression: Primary Impression: Adult general medical exam ER Course [id number] male requesting medical clearance prior to dental surgery and leg swelling. Patient denies new pain, swelling redness or warmth in the left ankle simply reports persistent persistent swelling though though this is improving after finishing course of prednisone yesterday and recent admission for gout. There is no evidence of an acute gouty attack and the patient has had no recurrent pain but states he simply wants to take prednisone preventatively. I explained to him that he had just finished a course of prednisone and long-term steroids can cause significant complications. I advised him that he would need to follow-up with his PMD for medical clearance prior to operations as well to discuss his long-term medications regarding gout and blood pressure. The patient arrived hypertensive had just taken his morning medications prior to my evaluation of the patient. He has no chest pain , dizziness, headache, vision changes or other complaints at this time. Advised him to discuss his blood pressure with his PMD as well. He is stable for outpatient follow-up. Discussed reasons to return to the ED. He understands and agrees with treatment plan. Last Vital Signs Date Time Temp Pulse Resp B/P (MAP) Pulse Ox O2 Delivery O2 Flow Rate FiO2 03/10/20 06:56 77 16 Room Air 03/10/20 06:42 97.5 185/100 (128) 98 Disposition: HOME, SELF-CARE Condition: Stable Additional Instructions: Please speak with your primary care provider, Dr. Mikey Sanchez, to obtain medical clearance prior to your dental procedure. Discussed your recent hospitalization and need for referral to orthopedist, switchboard operator assistant regarding your long history of gout. Return to the emergency department any new or worsening symptoms. Michael Avendano MD Mar 10, 2020 07:14
== END 2020-03-10 07:10 | disposition home or self-care (01) ==
LOC: EMR 07:05
DX: R22.43 Localized swelling, mass and lump, lower limb, bilateral (principal); I12.9 Hypertensive chronic kidney disease with stage 1 through stage 4 chronic kidney disease, or unspecified chronic kidney disease; N18.9 Chronic kidney disease, unspecified; Z96.659 Presence of unspecified artificial knee joint; J44.9 Chronic obstructive pulmonary disease, unspecified
CPT/HCPCS: 99281

== ENCOUNTER 2020-03-19 07:57 | Emergency (ER) | payer MEDICARE, MEDICAID ==
[~2020-03-19] VITALS: Ht 180.3 cm; Wt 90.7 kg
[2020-03-19 08:02] VITALS: BP 159/91
--- NOTE | 2020-03-19 08:10 | NUR ---
ED Nurse Note: patient walked into ED from home due to left hand swelling and pain for 3 days, c/o 10/10 pain non radiating. patient reports hx of gout and arthritis, reports he ran out of his colchicine about a week a go, as well as prednisone 2 weeks ago. patient is alert awake x4 ambulatory with his cane, breathing unlabored and even, speaking in full sentences.
[2020-03-19] MEDS ORDERED: dexAMETHasone 10mg/ml Inj IV ONE (08:45)
--- NOTE | 2020-03-19 08:48 | Emergency Room Report ---
History of Present Illness General Chief Complaint: Pain Source: Patient Present Illness HPI Patient is a 69-year-old male presents after increased left-sided hand pain primarily to his thumb. Reports of increased pain with movement. Prior history of gout as well as renal disease. He had recent hospitalization here for tachycardia. Had run out of medications 3 days ago. Increased pain and swelling to his left hand. He had previous gout flares with similar symptoms in the past. Patient denies any numbness to his fingers. Reports having decreased ability to move his hand. Reports having bilateral foot pain. He states he takes multiple medications. Allergies: Coded Allergies: No Known Allergies (Unverified , 02/20/20) COVID-19 Screening Contact w/high risk pt: No Recent Travel to affected area: No Experienced COVID-19 symptoms?: No COVID-19 Testing performed ASSISTANT CHIEF TRAIN DISPATCHER: No Patient History Past Medical History: see triage record Reviewed Nursing Documentation: PMH: Agreed; PSxH: Agreed Nursing Documentation-PMH Hx Hypertension: Yes Hx COPD: Yes Hx Cancer: No Hx Gastrointestinal Problems: No Hx Neurological Problems: No Physical Exam Vital Signs Date Time Temp Pulse Resp B/P (MAP) Pulse Ox O2 Delivery O2 Flow Rate FiO2 03/19/20 08:02 98.8 84 19 159/91 97 Room Air Sp02 EP Interpretation: reviewed, normal General Appearance: normal inspection, well appearing, no apparent distress, alert, GCS 15, Chronically Ill Head: atraumatic ENT: normal ENT inspection, hearing grossly normal, normal voice Neck: normal inspection, full range of motion, supple, no bony tend Respiratory: normal inspection, lungs clear, normal breath sounds, no respiratory distress, no retraction, no wheezing Cardiovascular #1: regular rate, rhythm, no edema, edema Gastrointestinal: normal inspection, normal bowel sounds, non tender, soft, no guarding, no hernia Genitourinary: no CVA tenderness Musculoskeletal: normal inspection, back normal, normal range of motion Neurologic: alert, motor strength/tone normal, transportation supervisor III-XII nml as tested, oriented x3, responsive, speech normal, normal inspection Psychiatric: normal inspection, judgement/insight normal, mood/affect normal Skin: other - Swelling to the left hand, left thumb with decreased range of motion, no erythema Medical Decision Making Diagnostic Impression: Primary Impression: Gout Additional Impression: Anemia ER Course Patient presented for left-sided hand pain. Differential diagnosis include was not limited to gouty arthritis, contusion, fracture, among others. Because of complexity of patient's case laboratory tests and imaging studies were ordered.Patient's laboratory testing showed some evidence of increased uric acid consistent with gout exacerbation. Patient was given medications for symptomatic treatment of gout. Kidney function appears to be preserved. Patient requested and was given prednisone prescription.Patient was advised of risks of persistent steroid use and he indicated understanding wishes to proceed with steroids. He was advised to follow-up with his primary care physician for recheck. He is advised dietary modification. He is advised further work-up for abnormal blood count. The patient is advised to follow up with primary care doctor in 1-2 days. Patient is advised to return if any worsening condition or if any changes in status that are concerning. This report is dictated with [employer] salvage repairer software which may occasionally lead to discrepancies related to use of this software. Labs Test 03/19/20 08:44 03/19/20 09:00 White Blood Count 9.7 K/UL (4.8-10.8) Red Blood Count 3.48 M/UL (4.70-6.10) Hemoglobin 9.9 G/DL (14.2-18.0) Hematocrit 31.1 % (42.0-52.0) Mean Corpuscular Volume 89 FL (80-99) Mean Corpuscular Hemoglobin 28.6 PG (27.0-31.0) Mean Corpuscular Hemoglobin Concent 32.0 G/DL (32.0-36.0) Red Cell Distribution Width 14.4 % (11.6-14.8) Platelet Count 224 K/UL (150-450) Mean Platelet Volume 6.1 FL (6.5-10.1) Neutrophils (%) (Auto) 72.8 % (45.0-75.0) Lymphocytes (%) (Auto) 14.2 % (20.0-45.0) Monocytes (%) (Auto) 8.3 % (1.0-10.0) Eosinophils (%) (Auto) 3.2 % (0.0-3.0) Basophils (%) (Auto) 1.4 % (0.0-2.0) Erythrocyte Sedimentation Rate 72 MM/HR (0-20) Prothrombin Time 11.0 SEC (9.30-11.50) Prothromb Time International Ratio 1.0 (0.9-1.1) Activated Partial Thromboplast Time 26 SEC (23-33) Uric Acid 8.0 MG/DL (2.6-7.2) Sodium Level 145 MMOL/L (136-145) Potassium Level 4.1 MMOL/L (3.5-5.1) Chloride Level 108 MMOL/L (98-107) Carbon Dioxide Level 27 MMOL/L (21-32) Anion Gap 10 mmol/L (5-15) Blood Urea Nitrogen 28 mg/dL (7-18) Creatinine 2.7 MG/DL (0.55-1.30) Estimat Glomerular Filtration Rate 28.5 mL/min (>60) Glucose Level 127 MG/DL (74-106) Calcium Level 9.2 MG/DL (8.5-10.1) Total Bilirubin 0.4 MG/DL (0.2-1.0) Aspartate Amino Transf (AST/SGOT) 21 U/L (15-37) Alanine Aminotransferase (ALT/SGPT) 24 U/L (12-78) Alkaline Phosphatase 57 U/L (46-116) Total Protein 6.7 G/DL (6.4-8.2) Albumin 3.2 G/DL (3.4-5.0) Globulin 3.5 g/dL Albumin/Globulin Ratio 0.9 (1.0-2.7) Last Vital Signs Date Time Temp Pulse Resp B/P (MAP) Pulse Ox O2 Delivery O2 Flow Rate FiO2 03/19/20 08:02 98.8 84 19 159/91 (113) 97 Room Air Status: improved Disposition: HOME, SELF-CARE Condition: Stable Scripts Prednisone* (PREDNISONE*) 20 Mg Tablet 10 MG ORAL DAILY for 5 Days, #5 TAB Prov: Stephen Feliz MD 03/19/20 Colchicine (Colchicine) 0.6 Mg Capsule 0.6 MG PO TWICE A DAY, #30 CAP Prov: Stephen Feliz MD 03/19/20 Hydrocodone Bit/Acetaminophen 5-325* (NORCO 5-325 TABLET*) 1 Each Tablet 1 TAB ORAL Q6H PRN for FOR PAIN, #10 TAB 0 Refills Prov: Stephen Feliz MD 03/19/20 Ferrous Sulfate* (FERROUS SULFATE*) 325 Mg Tablet 325 MG ORAL DAILY, #30 TAB 0 Refills Prov: Stephen Feliz MD 03/19/20 Stephen Feliz MD 6, 2020 08:48
--- NOTE | 2020-03-19 08:59 | NUR ---
ED Nurse Note: medications given as ordered.
--- NOTE | 2020-03-19 09:00 | NUR ---
ED Nurse Note: IV started and blood drawn and sent to lab.
[2020-03-19 09:24] LABS: BASOPHILS % (AUTO) 1.4 % (0.0-2.0); EOSINOPHILS % (AUTO) 3.2 % (0.0-3.0); HEMATOCRIT 31.1 % (42.0-52.0); HEMOGLOBIN 9.9 G/DL (14.2-18.0); LYMPHOCYTES % (AUTO) 14.2 % (20.0-45.0); MEAN CORPUSCULAR VOLUME 89 FL (80-99); MONOCYTES % (AUTO) 8.3 % (1.0-10.0); NEUTROPHILS % (AUTO) 72.8 % (45.0-75.0); PLATELET COUNT 224 K/UL (150-450); RED BLOOD COUNT 3.48 M/UL (4.70-6.10); RED CELL DISTRIBUTION WIDTH 14.4 % (11.6-14.8); WHITE BLOOD COUNT 9.7 K/UL (4.8-10.8)
[2020-03-19 09:37] LABS: ANION GAP 10 mmol/L (5-15); BLOOD UREA NITROGEN 28 mg/dL (7-18); CALCIUM 9.2 MG/DL (8.5-10.1); CARBON DIOXIDE 27 MMOL/L (21-32); CHLORIDE 108 MMOL/L (98-107); CREATININE 2.7 MG/DL (0.55-1.30); POTASSIUM 4.1 MMOL/L (3.5-5.1); SODIUM 145 MMOL/L (136-145)
[2020-03-19 09:42] LABS: ALANINE AMINOTRANSFERASE 24 U/L (12-78); ALBUMIN 3.2 G/DL (3.4-5.0); ALBUMIN/GLOBULIN RATIO 0.9 (1.0-2.7); ALKALINE PHOSPHATASE 57 U/L (46-116); ASPARTATE AMINO TRANSFERASE 21 U/L (15-37); BILIRUBIN,TOTAL 0.4 MG/DL (0.2-1.0)
[2020-03-19] MEDS ORDERED: COLCHICINE0.6 M1 PO (10:47)
[2020-03-19] MEDS ORDERED: FERROUS SULFAT325 MG ORAL (10:47)
[2020-03-19] MEDS ORDERED: NORCO 5-325 TA1 EAC1 ORAL (10:47)
[2020-03-19] MEDS ORDERED: PREDNISONE20 MG ORAL (11:02)
[2020-03-19 11:05] VITALS: BP 159/91
--- NOTE | 2020-03-19 11:05 | NUR ---
ER DISCHARGE NOTE: Patient is cleared to be discharged per ERMD DR ROBERTSON, pt is aox4, on room air, with stable vital signs. pt was given dc and prescription instructions, pt was able to verbalize understanding, pt id band and iv site removed without complications. pt is able to ambulate with steady gait with his cane. pt took all belongings.
== END 2020-03-19 11:10 | disposition home or self-care (01) ==
LOC: EMR 08:41
DX: M10.9 Gout, unspecified (principal); J44.9 Chronic obstructive pulmonary disease, unspecified; I10 Essential (primary) hypertension
CPT/HCPCS: 36415; 80053; 84550; 85025; 85610; 85651; 85730; 96374; 99284